=== PATIENT | male | born 1970 | race Caucasian/White ===

== ENCOUNTER 2017-02-28 08:33 | Emergency (ER) | payer MEDICAID ==
[~2017-02-28] VITALS: Ht 177.8 cm; Wt 68.0 kg
[~2017-02-28 08:33] MED LIST: ADVIL
[2017-02-28] MEDS ORDERED: OMEP20CA10 PO (08:48)
[2017-02-28] MEDS ORDERED: LISI-186 PO (08:48)
[2017-02-28] MEDS ORDERED: KETOROLAC 60MG/2ML VIAL IM ONE (09:00)
[2017-02-28 10:59] LABS: CLARITY URINE CLEAR (CLEAR); COLOR URINE YELLOW (YELLOW); GLUCOSE URINE NEGATIVE (NEGATIVE); KETONES URINE NEGATIVE (NEGATIVE); LEUKOCYTE ESTERASE URINE NEGATIVE (NEGATIVE); NITRITE URINE NEGATIVE (NEGATIVE); OCCULT BLOOD URINE NEGATIVE (NEGATIVE); PROTEIN URINE NEGATIVE (NEGATIVE); SPECIFIC GRAVITY URINE 1.007 (1.005-1.030); UROBILINOGEN URINE 0.2 E.U./dL (0.2-1.0)
[2017-02-28 11:54] VITALS: BP 120/72
== END 2017-02-28 11:57 | disposition home or self-care (01) ==
LOC: ER 09:31
DX: S29.9XXA Unspecified injury of thorax, initial encounter (principal); D64.9 Anemia, unspecified; I10 Essential (primary) hypertension; Z98.890 Other specified postprocedural states; W22.8XXA Striking against or struck by other objects, initial encounter; Y93.89 Activity, other specified; Y99.8 Other external cause status; Y92.89 Other specified places as the place of occurrence of the external cause
CPT/HCPCS: 72040; 72070; 72100; 81003; 96372; 99285; J1885; Z7610

== ENCOUNTER 2017-06-15 11:48 | Emergency (ER) | payer MEDICAID ==
[~2017-06-15] VITALS: Ht 182.9 cm; Wt 73.0 kg
[~2017-06-15 11:48] MED LIST changes: +LISI-186 PO; +OMEP20CA10 PO
[2017-06-15 11:49] VITALS: BP 205/102
== END 2017-06-15 17:31 | disposition left against medical advice (07) ==
LOC: ER 13:04
DX: Z04.1 Encounter for examination and observation following transport accident (principal); M54.9 Dorsalgia, unspecified; Z53.21 Procedure and treatment not carried out due to patient leaving prior to being seen by health care provider

== ENCOUNTER 2019-08-21 07:29 | Emergency (ER) | payer SELFPAY ==
[~2019-08-21] VITALS: Ht 167.6 cm; Wt 73.0 kg
[~2019-08-21 07:29] MED LIST changes: -OMEP20CA10 PO; +OMEP20CA5 PO
[2019-08-21] MEDS ORDERED: IBUPROFEN 400MG TABLET PO ONE (08:15)
[2019-08-21 09:40] VITALS: BP 135/94
== END 2019-08-21 10:04 | disposition home or self-care (01) ==
LOC: ER 07:29
DX: S42.401A Unspecified fracture of lower end of right humerus, initial encounter for closed fracture (principal); S89.92XA Unspecified injury of left lower leg, initial encounter; I10 Essential (primary) hypertension; Z98.890 Other specified postprocedural states; Z79.899 Other long term (current) drug therapy; X58.XXXA Exposure to other specified factors, initial encounter; Y93.89 Activity, other specified; Y92.89 Other specified places as the place of occurrence of the external cause; Y99.8 Other external cause status
CPT/HCPCS: 29105; 73080; 73562; 99283

== ENCOUNTER 2024-08-17 23:47 | Emergency (ER) | payer SELFPAY ==
[~2024-08-17] VITALS: Ht 182.9 cm; Wt 77.0 kg
[~2024-08-17 23:47] MED LIST changes: +OMEP20CA14 PO; -OMEP20CA5 PO
[2024-08-17 23:51] VITALS: BP 162/102; PULSE 81; RESP 16; TEMP 97.4; O2SAT 99
== END 2024-08-18 00:12 ==
LOC: ER 23:47
DX: I10 Essential (primary) hypertension (principal)
CPT/HCPCS: 99283